=== PATIENT | female | born 1930 | race Caucasian/White ===

== ENCOUNTER 2016-03-17 11:39 | Outpatient (CLI) | payer MEDICARE ==
[2016-03-17 12:22] LABS: Prothrombin Time 24.8 SEC (12.0-14.7)
[2016-03-17 12:40] LABS: #Eosinphils 0.2 thou/uL (0.0-0.7); #Lymphocytes 1.7 thou/uL (1.20-3.40); #Monocytes 0.9 thou/uL (0.11-0.59); #Neutrophils 4.5 thou/uL (1.40-6.50); %Basophils 0.6 % (0.0-1.0); %Eosinophils 2.4 % (0.0-10.0); %Monocytes 12.5 % (0.0-10.0); Hematocrit 38.6 % (36.0-47.0); Mean Platelet Volume 6.2 fL (7.4-10.4); Red Blood Cell (RBC) Count 3.95 mill/uL (4.20-5.40); White Blood Cell (WBC) Count 7.3 thou/uL (4.8-10.8)
[2016-03-17 12:50] LABS: ALT (SGPT) 16 U/L (0-55); AST (SGOT) 19 U/L (5-34); Alkaline Phosphatase 75 U/L (40-150); Anion Gap 16 mmol/L (10-20); BUN (Urea Nitrogen) 41 mg/dL (9.8-20.1); Bilirubin, Total 0.4 mg/dL (0.2-1.2); Calc. Creatinine Clearance 0 mL/min (70-130); Calcium 9.4 mg/dL (7.8-10.44); Carbon Dioxide 26 mmol/L (23-31); Chloride 103 mmol/L (98-107); Estimated GFR-MDRD 38; Globulin 3.1 g/dL (2.4-3.5); Protein, Total 7.3 g/dL (5.8-8.1)
== END 2016-03-17 11:40 | disposition home or self-care (01) ==
LOC: HPCALD 11:39
PROVIDERS: ATTEND Family Medicine
DX: E03.9 Hypothyroidism, unspecified (principal); I10 Essential (primary) hypertension; I48.91 Unspecified atrial fibrillation
CPT/HCPCS: 36415; 80053; 84443; 85025; 85610

== ENCOUNTER 2016-04-09 12:12 | Outpatient (CLI) | payer MEDICARE ==
[2016-04-09 13:09] LABS: Prothrombin Time 22.5 SEC (12.0-14.7)
== END 2016-04-09 12:13 ==
LOC: HPCALD 12:12
PROVIDERS: ATTEND Family Medicine
DX: I48.91 Unspecified atrial fibrillation (principal)
CPT/HCPCS: 36415; 85610

== ENCOUNTER 2016-05-07 13:25 | Outpatient (CLI) | payer MEDICARE ==
[2016-05-07 13:42] LABS: Prothrombin Time 24.5 SEC (12.0-14.7)
== END 2016-05-07 13:26 | disposition home or self-care (01) ==
LOC: HPCALD 13:25
PROVIDERS: ATTEND Family Medicine
DX: I48.91 Unspecified atrial fibrillation (principal)
CPT/HCPCS: 36415; 85610

== ENCOUNTER 2016-06-16 11:29 | Outpatient (CLI) | payer MEDICARE ==
[2016-06-16 12:03] LABS: INR-International Normal Ratio 2.3; Prothrombin Time 25.8 SEC (12.0-14.7)
[2016-06-16 12:25] LABS: ALT (SGPT) 15 U/L (0-55); AST (SGOT) 17 U/L (5-34); Albumin 4.3 g/dL (3.4-4.8); Alkaline Phosphatase 74 U/L (40-150); Anion Gap 15 mmol/L (10-20); BUN (Urea Nitrogen) 37 mg/dL (9.8-20.1); Bilirubin, Direct 0.2 mg/dL (0.1-0.3); Bilirubin, Total 0.5 mg/dL (0.2-1.2); Calc. Creatinine Clearance 0 mL/min (70-130); Calcium 9.3 mg/dL (7.8-10.44); Carbon Dioxide 27 mmol/L (23-31); Cardiac Risk 4.8 (Less than 4.5); Chloride 106 mmol/L (98-107); Cholesterol 195 mg/dL (< 200 Desired); Estimated GFR-MDRD 39; Glucose 101 mg/dL (83-110); HDL Cholesterol 41 mg/dL (>60 Neg Risk); LDL Cholesterol, Calculated 126 mg/dL; Potassium 4.8 mmol/L (3.5-5.1); Protein, Total 7.2 g/dL (5.8-8.1); Sodium 143 mmol/L (136-145); Triglycerides 138 mg/dL (Less than 150)
== END 2016-06-16 11:30 | disposition home or self-care (01) ==
LOC: BURLAB 11:29
PROVIDERS: ATTEND Internal Medicine Cardiovascular Disease
DX: E78.00 Pure hypercholesterolemia, unspecified (principal); I10 Essential (primary) hypertension; I48.91 Unspecified atrial fibrillation
CPT/HCPCS: 36415; 80048; 80061; 80076; 85610

== ENCOUNTER 2016-07-16 13:08 | Outpatient (CLI) | payer MEDICARE ==
[2016-07-16 13:25] LABS: INR-International Normal Ratio 2.5; Prothrombin Time 28.4 SEC (12.0-14.7)
== END 2016-07-16 13:09 | disposition home or self-care (01) ==
LOC: HPCALD 13:08
PROVIDERS: ATTEND Family Medicine
DX: I48.91 Unspecified atrial fibrillation (principal)
CPT/HCPCS: 36415; 85610

== ENCOUNTER 2016-08-16 13:28 | Outpatient (CLI) | payer MEDICARE ==
[2016-08-16 13:43] LABS: INR-International Normal Ratio 2.7; Prothrombin Time 29.6 SEC (12.0-14.7)
== END 2016-08-16 13:29 | disposition home or self-care (01) ==
LOC: HPCALD 13:28
PROVIDERS: ATTEND Family Medicine
DX: I48.91 Unspecified atrial fibrillation (principal)
CPT/HCPCS: 36415; 85610

== ENCOUNTER 2016-09-20 10:49 | Outpatient (CLI) | payer MEDICARE ==
[2016-09-20 12:49] LABS: INR-International Normal Ratio 2.1; Prothrombin Time 23.8 SEC (12.0-14.7)
== END 2016-09-20 10:50 | disposition home or self-care (01) ==
LOC: HPCALD 10:49
PROVIDERS: ATTEND Family Medicine
DX: I48.91 Unspecified atrial fibrillation (principal)
CPT/HCPCS: 36415; 85610